=== PATIENT | female | born 1955 | race Caucasian/White ===

== ENCOUNTER 2017-08-20 11:27 | Emergency (ER) | payer BC ==
[~2017-08-20] VITALS: Ht 157.5 cm; Wt 98.8 kg
[2017-08-20 11:35] VITALS: BP 140/75
[2017-08-20] MEDS ORDERED: NORCO 10/3251 TABLET PO (12:29)
== END 2017-08-20 13:01 | disposition home or self-care (01) ==
LOC: EME 11:27
DX: S42.212A Unspecified displaced fracture of surgical neck of left humerus, initial encounter for closed fracture (principal); W01.0XXA Fall on same level from slipping, tripping and stumbling without subsequent striking against object, initial encounter; Y92.818 Other transport vehicle as the place of occurrence of the external cause; Y93.89 Activity, other specified; I10 Essential (primary) hypertension; Z96.651 Presence of right artificial knee joint; Z90.710 Acquired absence of both cervix and uterus
CPT/HCPCS: 99281; 99283